=== PATIENT | female | born 1990 | race Caucasian/White ===

== ENCOUNTER → 2020-07-11 | Outpatient (CLI) | payer BC ==
--- NOTE | 2020-07-11 08:06 | REPVR ---
PROCEDURE INFORMATION: Exam: US First Trimester, Transabdominal Exam date and time: 07/11/2020 7:35 AM Age: 29 years old Clinical indication: Screening exam; Other: Unable to hear fht in office; ; Additional info: Heart beat could not be found TECHNIQUE: Imaging protocol: Real-time transabdominal obstetrical ultrasound of the maternal pelvis and a first trimester , less than 14 weeks 0 days, with image documentation. COMPARISON: No relevant prior studies available. FINDINGS: Gestation: Single IUP Embryonic/ heart rate: No cardiac activity identified. Placenta: Anterior placenta. BIOMETRY: Gestational age (AUA): Ultrasound gestational age 12 weeks 2 days. Hadley-Rump length: Hadley-rump length 5.8 cm. MATERNAL: Uterus: Unremarkable. Cervix: Unremarkable. Right adnexa: Unremarkable. Left adnexa: Unremarkable. Intraperitoneal space: No intraperitoneal free fluid. IMPRESSION: Sonographic findings are consistent with failed /intrauterine demise. Findings were discussed with Augustine Eason at 07/11/2020 8:05 AM EDT. Electronically signed by: Jayce Devine On 07/11/2020 08:06:17 AM
== END ==
LOC: M RAD 07:01
PROVIDERS: ATTEND Midwife
DX: Z34.80 Encounter for supervision of other normal pregnancy, unspecified trimester (principal); Z3A.12 12 weeks gestation of pregnancy

== ENCOUNTER → 2022-06-13 | Outpatient (CLI) | payer BC | LOC: M WHC 07:11 | PROVIDERS: ATTEND Midwife | DX: Z34.91 Encounter for supervision of normal pregnancy, unspecified, first trimester (principal); Z3A.08 8 weeks gestation of pregnancy ==

== ENCOUNTER → 2024-06-10 | Outpatient (CLI) | payer BC | LOC: M RAD 12:59 | PROVIDERS: ATTEND Orthopaedic Surgery | DX: R22.32 Localized swelling, mass and lump, left upper limb (principal) ==